=== PATIENT | female | born 1950 | race Two or more races ===

== ENCOUNTER 2023-06-17 09:48 | Emergency (ER) | payer MEDICARE, OTHER ==
[~2023-06-17] VITALS: Ht 157.5 cm; Wt 61.2 kg
[2023-06-17 10:29] VITALS: BP 112/76; PULSE 100; RESP 16; TEMP 97.8; O2SAT 97
== END 2023-06-17 12:25 | disposition home or self-care (01) ==
LOC: ER 09:48
DX: N60.02 Solitary cyst of left breast (principal); E78.5 Hyperlipidemia, unspecified
CPT/HCPCS: 76642

== ENCOUNTER → 2023-06-29 | Outpatient (CLI) | payer OTHER ==
[2023-06-29 11:04] LABS: Basophils # (auto) 0.1 10 ^3/uL (0-0.2); Basophils % (auto) 1.3 % (0.0-2.0); Eosinophils # (auto) 0.1 10 ^3/uL (0-0.8); Eosinophils % (auto) 2.8 % (0.0-7.0); Hematocrit 39.3 % (36.0-46.0); Hemoglobin 13.2 g/dL (12.2-16.2); Lymphocytes # (auto) 2.4 10 ^3/uL (0.4-5.4); Lymphocytes % (auto) 47.2 % (10.0-50.0); Mean Corpuscular Hemoglobin 30.8 pg (28.0-32.0); Mean Corpuscular Hgb Conc. 33.6 g/dL (32.0-36.0); Mean Corpuscular Volume 91.9 fL (80.0-100.0); Monocytes # (auto) 0.3 10 ^3/uL (0-1.3); Neutrophils # (auto) 2.1 10 ^3/uL (1.6-8.6); Neutrophils % (auto) 42.7 % (37.0-80.0); Red Blood Cells 4.28 10^6/uL (4.0-5.20); Red Cell Distribution Width 14.7 % (11.8-14.3)
[2023-06-29 11:38] LABS: Alanine Aminotransferase 24 U/L (7-40); Alkaline Phosphatase 60 U/L (46-116); Anion Gap 4 (5-15); Blood Urea Nitrogen 15 mg/dL (9-23); Calcium 9.7 mg/dL (8.5-10.1); Carbon Dioxide 32 mmol/L (20-30); Chloride 105 mmol/L (98-107); Glucose 97 mg/dL (74-106); Potassium 4.7 mmol/L (3.5-5.1); Sodium 141 mmol/L (136-145); Triglycerides 110 mg/dL (< 150)
[2023-06-29 11:39] LABS: LDL Cholesterol 109 mg/dL (< 100)
[2023-06-29 11:40] LABS: Albumin 4.7 g/dL (3.2-4.8); Aspartate Aminotransferase 23 U/L (13-40); Cholesterol 181 mg/dL (< 200); Free T4 (Free Thyroxine) 1.07 ng/dL (0.89-1.76); HDL Cholesterol 57 mg/dL (40-59); T3 Total 1.18 ng/mL (0.60-1.81)
[2023-06-29 11:41] LABS: Bilirubin, Total 0.9 mg/dL (0.2-1.0); Total Protein 6.9 g/dL (5.7-8.2)
== END | disposition home or self-care (01) ==
LOC: LAB 10:49
PROVIDERS: ATTEND Nurse Practitioner Gerontology
DX: Z00.01 Encounter for general adult medical examination with abnormal findings (principal); Z13.1 Encounter for screening for diabetes mellitus; E78.49 Other hyperlipidemia; Z29.9 Encounter for prophylactic measures, unspecified
CPT/HCPCS: 36415; 80053; 80061; 84439; 84443; 84480; 85025

== ENCOUNTER → 2023-09-28 | Outpatient (CLI) | payer OTHER ==
[~2023-09-28] MED LIST: DICY10CA PO
[2023-09-28 08:08] LABS: Urine Bacteria None Seen /hpf (None Seen)
[2023-09-28 08:16] LABS: Basophils # (auto) 0 10 ^3/uL (0-0.2); Basophils % (auto) 0.9 % (0.0-2.0); Eosinophils # (auto) 0.1 10 ^3/uL (0-0.8); Eosinophils % (auto) 1.9 % (0.0-7.0); Hematocrit 42.2 % (36.0-46.0); Hemoglobin 13.7 g/dL (12.2-16.2); Lymphocytes # (auto) 1.8 10 ^3/uL (0.4-5.4); Lymphocytes % (auto) 54.2 % (10.0-50.0); Mean Corpuscular Hemoglobin 29.9 pg (28.0-32.0); Mean Corpuscular Hgb Conc. 32.5 g/dL (32.0-36.0); Mean Corpuscular Volume 91.9 fL (80.0-100.0); Monocytes # (auto) 0.3 10 ^3/uL (0-1.3); Monocytes % (auto) 9.9 % (0.0-12.0); Neutrophils # (auto) 1.1 10 ^3/uL (1.6-8.6); Neutrophils % (auto) 33.1 % (37.0-80.0); Red Blood Cells 4.59 10^6/uL (4.0-5.20); White Blood Cell 3.4 10^3/uL (4.4-10.8)
[2023-09-28 08:40] LABS: Urine Blood Negative /uL (Negative); Urine Clarity Clear (Clear); Urine Color Light-Yellow (Yellow); Urine Protein, UAD Negative (Negative); Urine Specific Gravity 1.012 (1.001-1.035); Urine Urobilinogen Normal (Negative); Urine WBC 1 /hpf (0 - 5); Urine pH 6.5 (5.0-9.0)
[2023-09-28 08:43] LABS: Alanine Aminotransferase 23 U/L (7-40); Albumin 4.6 g/dL (3.2-4.8); Alkaline Phosphatase 60 U/L (46-116); Anion Gap 6 (5-15); Aspartate Aminotransferase 26 U/L (13-40); BUN/Creatinine Ratio 14.1 (10.0-20.0); Bilirubin, Total 0.5 mg/dL (0.2-1.0); Blood Urea Nitrogen 14 mg/dL (9-23); Calcium 9.7 mg/dL (8.5-10.1); Carbon Dioxide 31 mmol/L (20-30); Chloride 106 mmol/L (98-107); Cholesterol 147 mg/dL (< 200); Glucose 101 mg/dL (74-106); HDL Cholesterol 55 mg/dL (40-59); LDL Cholesterol 73 mg/dL (< 100); Potassium 4.1 mmol/L (3.5-5.1); Sodium 143 mmol/L (136-145); Total Protein 6.9 g/dL (5.7-8.2); Triglycerides 91 mg/dL (< 150)
== END | disposition home or self-care (01) ==
LOC: LAB 07:59
DX: Z12.11 Encounter for screening for malignant neoplasm of colon (principal); E55.9 Vitamin D deficiency, unspecified; E78.5 Hyperlipidemia, unspecified
CPT/HCPCS: 36415; 80053; 80061; 81001; 82274; 82306; 83036; 85025